=== PATIENT | female | born 1975 | race Caucasian/White ===

== ENCOUNTER 2019-07-08 12:30 | Inpatient (IN) ==
[2019-07-08] MEDS ORDERED: NS 1,000 ML IV ONE ×2 (12:59→16:41)
[2019-07-08] MEDS ORDERED: TYLENOL PO ONE (12:59)
[2019-07-08 13:01] LABS: BASO# 0.02 X1000 (0.0-0.2); BASO% 0.2 % (0.0-0.8); EOS# 0.02 X1000 (0.0-0.7); EOS% 0.2 % (0.0-10.0); IMM GRAN# 0.11 X1000 (0.0-0.04); IMM GRAN% 0.9 % (0.0-0.5); LYMPH# 1.84 X1000 (1.2-3.4); LYMPH% 14.4 % (20.5-51.1); MCHC 32.5 g/dL (33-37); MCV 95.2 FL (81-99); MONO# 0.83 X1000 (0.11-0.59); MONO% 6.5 % (1.7-9.3); MPV 9.8 FL (7.4-10.4); NEUT# 9.92 X1000 (1.4-6.5); NEUT% 77.8 % (42.2-75.2); PLT 320 X1000 (130-400); RDW 12.5 % (11.5-14.5); WBC 12.74 X1000 (4.8-10.8)
[2019-07-08] MEDS ORDERED: AMMONIA AROMATIC ONE (13:03)
--- NOTE | 2019-07-08 13:05 | PROVIDER DOCUMENTATION ---
HPI-Syncope/Dizziness - General Chief Complaint: Syncope Stated Complaint: syncope Time Seen by Provider: 07/08/19 12:43 Source: patient, family, EMS Allergies/Adverse Reactions: Patient Allergies Allergy/AdvReac Type Severity Reaction Status Date / Time levofloxacin [From Levaquin] Allergy Mild RASH Verified 07/08/19 14:53 meperidine HCl * Allergy Mild RASH Verified 07/08/19 14:53 [From Demerol] ketorolac tromethamine * Allergy ITCHING Verified 07/08/19 14:53 [From Toradol] metoclopramide [From Reglan] Allergy Unknown Verified 07/08/19 14:53 morphine Allergy ITCHING Verified 07/08/19 14:53 Home Medications: Home Medication List Medication Instructions Recorded Confirmed Last Taken Type Dicyclomine [Bentyl] 10 mg PO PRN PRN 12/13/13 07/08/19 07/08/19 History Fludrocortisone [Florinef] 0.1 mg PO DAILY 12/13/13 07/08/19 07/08/19 History Gabapentin [Neurontin] 600 mg PO RTQHS 12/13/13 07/08/19 07/08/19 History Tizanidine HCl 4 mg PO HS 12/13/13 07/08/19 07/08/19 History Alprazolam [Xanax] 1 mg PO Q6-8H PRN PRN 04/18/15 07/08/19 07/08/19 06:00 History Valacyclovir HCl [Valtrex] 1,000 mg PO DAILY 04/18/15 07/08/19 07/08/19 06:00 History Aripiprazole [Abilify] 10 mg PO DAILY 06/30/15 07/08/19 07/08/19 History Sumatriptan Succinate [Imitrex] 100 mg PO PRN PRN 09/17/16 07/08/19 07/08/19 History Amovig 70 mg INJ DIRECTED 07/08/19 Unknown History Cyanocobalamin (Vitamin B-12) 2,000 mcg PO DAILY 07/08/19 07/08/19 07/08/19 06:00 History [Vitamin B-12] Estrogens, Conjugated [Premarin] 0.625 mg PO DAILY 07/08/19 07/08/19 07/08/19 06:00 History Furosemide [Lasix] 20 mg PO DAILY 07/08/19 07/08/19 07/08/19 06:00 History Hydrocortisone [Cortef] 15 mg PO QPM 07/08/19 07/08/19 07/07/19 15:00 History Hydrocortisone [Cortef] 20 mg PO AC 07/08/19 07/08/19 07/07/19 06:00 History Levothyroxine [Synthroid] 137 microgm PO DAILY 07/08/19 07/08/19 07/08/19 06:00 History Metoclopramide [Reglan] 12.5 mg PO QPM 07/08/19 07/08/19 Unknown History Omeprazole 40 mg PO DAILY 07/08/19 07/08/19 07/08/19 History Potassium Chloride 10 meq PO DAILY 07/08/19 07/08/19 07/07/19 15:00 History Prasterone (Dhea) [Dhea] 50 mg PO DAILY 07/08/19 07/08/19 07/07/19 12:00 History Sitagliptin Phosphate [Januvia] 100 mg PO DAILY 07/08/19 07/08/19 07/08/19 06:00 History Topiramate [Trokendi Xr] 150 mg PO HS 07/08/19 07/08/19 07/07/19 19:00 History Trazodone [Desyrel] 200 mg PO QHS 07/08/19 07/08/19 07/07/19 19:00 History Vortioxetine Hydrobromide 20 mg PO DAILY 07/08/19 07/08/19 Unknown History [Trintellix] Vortioxetine Hydrobromide 20 mg PO DAILY 07/08/19 07/08/19 07/08/19 06:00 Histo ry [Trintellix] - History of Present Illness-Syncope/Dizzy Nature of Presenting Problem: Patient is a 44 yowf who presents via EMS following a syncopal episode 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 Family state pt was sitting in a chair when she passed out and did not fall out of the chair. Pt c/o "pain all over" and headache. She also c/o nausea. Denies any other symptoms. She is non-toxic in appearance. Review of Systems - Adult - REVIEW OF SYSTEMS - ADULT Constitutional: reports: no symptoms reported. denies: chills, fever Eyes: reports: no symptoms reported Ears, Nose, Mouth & Throat: reports: no symptoms reported Cardiovascular: reports: see HPI, syncope. denies: chest pain, edema Respiratory: reports: no symptoms reported. denies: shortness of breath Gastrointestinal: reports: see HPI, nausea. denies: abdominal pain, hematemesis, diarrhea, vomiting Genitourinary: reports: no symptoms reported Musculoskeletal: reports: see HPI ("pain all over") Integumentary: reports: no symptoms reported Neurological: reports: see HPI, headache/migraines, syncope. denies: ataxia, seizure Psychiatric: reports: no symptoms reported Endocrine: reports: no symptoms reported Hematologic/Lymphatic: reports: no symptoms reported Allergic/Immunologic: reports: no symptoms reported All Other Systems: Reviewed and Negative Past History - Adult - PAST MEDICAL HISTORY-ADULT Review of Records: reports: Old Records Reviewed, Nursing Assessment Review, Medications Reviewed, Social history reviewed & non-contributory. Major Childhood Illnesses: reports: denies history Cardiovascular: reports: heart valve problem (MVP) Respiratory: reports: COPD, sleep apnea Gastrointestinal: reports: GERD, other (gastroparesis) Obstetrical/Gynecological: reports: denies history Genitourinary: reports: denies history Musculoskeletal: reports: chronic pain, fibromyalgia, neck/back injury, other (restless leg syndrome) Neurological: reports: headaches/migraines, Seizures/Epilepsy Psychiatric: reports: anxiety, depression Endocrine/Immune: reports: adrenal insufficiency (Addisons), anemia, cancer (thyroid), Diabetes, thyroid disorder (hypo) 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 - PRIOR SURGERIES/PROCEDURES Surgical/Procedure History: reports: recent surgery (bladder sling placement), hysterectomy, BTL, indwelling device (bladder sling placement), tonsillectomy, hernia repair, back/neck (cervical fusion), other (thyroidectomy, L vocal cord, T&A, wisdom teeth removal) - IMMUNIZATION STATUS Childhood Immunizations: See Nurse Assessment Flu Vaccine: See Nurse Assessment - FAMILY HISTORY Family History: reviewed, not pertinent - SOCIAL HISTORY Smoking: cigarettes, less than 1 pack/day Physical Exam-General - PHYSICAL EXAM-ADULT Initial Vital Signs Reviewed: Yes - CONSTITUTIONAL General Appearance: alert, no apparent distress, lethargic. negative: slow to respond - EYES Eyes: PERRL/EOMI, pink conjunctivae. negative: anisocoria - HEAD, EARS, NOSE, MOUTH & THROAT HENMT: normocephalic/atraumatic, moist mucous membranes - NECK Neck: non-tender, full range of motion, supple, normal inspection. negative: C- spine tenderness - RESPIRATORY Respiratory: chest non-tender, lungs clear, normal breath sounds, no pleuratic chest pain, no respiratory distress, no accessory muscle use - CARDIOVASCULAR Cardiovascular: normal peripheral pulses, regular rate, rhythm, no edema, no gallop, no murmur - GASTROINTESTINAL (ABDOMEN) Abdominal Exam: normal bowel sounds, non tender, soft, no pulsatile mass - MUSCULOSKELETAL Back Exam: normal inspection Extremity: normal range of motion, non-tender, normal inspection - SKIN Integumentary: normal color, warm/dry. negative: cyanosis, diaphoresis, jaundic e, mottled, pallor - NEUROLOGIC Neurologic: grossly normal, no motor/sensory deficits - PSYCHIATRIC Psych/Mental Status: normal mood/affect, normal thought content, normal thought process, oriented x 3 Progress - PLAN OF CARE/RESULTS Progress/Plan/Lab Results: Vital Signs - 8 hr 07/08/19 12:38 07/08/19 12:42 07/08/19 16:23 Temperature 97.4 F L 97.8 F 97.7 F Pulse Rate 55 L 74 50 L Respiratory Rate 18 19 14 Blood Pressure 123/80 130/82 144/074 O2 Sat by Pulse Oximetry 97 98 96 Laboratory Results - last 24 hr 07/08/19 07/08/19 07/08/19 12:45 12:45 12:45 WBC 12.74 H RBC 4.20 Hgb 13.0 Hct 40.0 MCV 95.2 MCH 31.0 MCHC 32.5 L RDW Std Deviation 12.5 Plt Count 320 MPV 9.8 Immature Gran % (Auto) 0.9 H Neut % (Auto) 77.8 H Lymph % (Auto) 14.4 L Robeson % (Auto) 6.5 Eos % (Auto) 0.2 Baso % (Auto) 0.2 Immature Gran # (Auto) 0.11 H Neut # (Auto) 9.92 H Lymph # (Auto) 1.84 Robeson # (Auto) 0.83 H Eos # (Auto) 0.02 Baso # (Auto) 0.02 PT INR PTT (Actin FS) Sodium 142 Potassium 3.5 Chloride 106 Carbon Dioxide 26 Anion Gap 10 BUN 14 Creatinine 0.9 Estimated GFR/1.73 m2 > 60 BUN/Creatinine Ratio 16 Glucose 126 H Calculated Osmolality 285 Calcium 8.0 L Magnesium Total Bilirubin < 0.15 L AST 10 ALT 9 L Alkaline Phosphatase 83 Creatine Kinase 51 Troponin T Gei-D-Zevplqkpqai Pept 256 H Total Protein 6.1 L Albumin 3.8 Globulin 2.0 Albumin/Globulin Ratio 2.0 Cortisol Urine Source Urine Color Urine Clarity Urine pH Ur Specific Riva Urine Protein Urine Ketones Urine Blood Urine Nitrite Urine Bilirubin Urine Urobilinogen Urine WBC Urine Glucose Urine Opiates Screen Ur Oxycodone Screen Urine Methadone Screen U Propoxyphene Qual Ur Barbituates Screen Ur Tricyclics Screen Ur Phencyclidine Scrn Ur Amphetamines Screen U Methamphetamines Scrn U Benzodiazepines Scrn Urine Cocaine Screen U Cannabinoids Screen 07/08/19 07/08/19 07/08/19 12:45 12:45 12:45 WBC RBC Hgb Hct MCV MCH MCHC RDW Std Deviation Plt Count MPV Immature Gran % (Auto) Neut % (Auto) Lymph % (Auto) Robeson % (Auto) Eos % (Auto) Baso % (Auto) Immature Gran # (Auto) Neut # (Auto) Lymph # (Auto) Robeson # (Auto) Eos # (Auto) Baso # (Auto) PT 12.3 INR 0.87 PTT (Actin FS) 25.8 Sodium Potassium Chloride Carbon Dioxide Anion Gap BUN Creatinine Estimated GFR/1.73 m2 BUN/Creatinine Ratio Glucose Calculated Osmolality Calcium Magnesium Total Bilirubin AST ALT Alkaline Phosphatase Creatine Kinase Troponin T < 0.010 Jbw-P-Blgeswfkhka Pept Total Protein Albumin Globulin Albumin/Globulin Ratio Cortisol 6.0 Urine Source Urine Color Urine Clarity Urine pH Ur Specific Riva Urine Protein Urine Ketones Urine Blood Urine Nitrite Urine Bilirubin Urine Urobilinogen Urine WBC Urine Glucose Urine Opiates Screen Ur Oxycodone Screen Urine Methadone Screen U Propoxyphene Qual Ur Barbituates Screen Ur Tricyclics Screen Ur Phencyclidine Scrn Ur Amphetamines Screen U Methamphetamines Scrn U Benzodiazepines Scrn Urine Cocaine Screen U Cannabinoids Screen 07/08/19 07/08/19 07/08/19 12:45 13:15 13:15 WBC RBC Hgb Hct MCV MCH MCHC RDW Std Deviation Plt Count MPV Immature Gran % (Auto) Neut % (Auto) Lymph % (Auto) Robeson % (Auto) Eos % (Auto) Baso % (Auto) Immature Gran # (Auto) Neut # (Auto) Lymph # (Auto) Robeson # (Auto) Eos # (Auto) Baso # (Auto) PT INR PTT (Actin FS) Sodium Potassium Chloride Carbon Dioxide Anion Gap BUN Creatinine Estimated GFR/1.73 m2 BUN/Creatinine Ratio Glucose Calculated Osmolality Calcium Magnesium 1.9 Total Bilirubin AST ALT Alkaline Phosphatase Creatine Kinase Troponin T Tyd-T-Xprmxbugbhd Pept Total Protein Albumin Globulin Albumin/Globulin Ratio Cortisol Urine Source CATH Urine Color YELLOW Urine Clarity CLEAR Urine pH 7.0 Ur Specific Riva 1.005 Urine Protein NEGATIVE Urine Ketones TRACE Urine Blood NEGATIVE Urine Nitrite NEGATIVE Urine Bilirubin NEGATIVE Urine Urobilinogen NORMAL Urine WBC TRACE A Urine Glucose NEGATIVE Urine Opiates Screen NONE DETECTED Ur Oxycodone Screen NONE DETECTED Urine Methadone Screen NONE DETECTED U Propoxyphene Qual NONE DETECTED Ur Barbituates Screen NONE DETECTED Ur Tricyclics Screen PRESUMPTIVE POSITIVE A Ur Phencyclidine Scrn NONE DETECTED Ur Amphetamines Screen NONE DETECTED U Methamphetamines Scrn NONE DETECTED U Benzodiazepines Scrn NONE DETECTED Urine Cocaine Screen NONE DETECTED U Cannabinoids Screen NONE DETECTED Orders Category Date Time Status Cardiac Monitoring DIRECTED Care 07/08/19 12:38 Active Oxygen Therapy- ED Nursing DIRECTED Care 07/08/19 12:38 Active Saline Loc NOW Care 07/08/19 12:38 Active CHEST-2 VIEWS [RAD] Stat Exams 07/08/19 12:[address] HEAD W/O CONTRAST [CT] Stat Exams 07/08/19 12:59 Completed BLOOD CULTURE [BLDCUL] Stat Lab 07/08/19 15:45 Ordered CBC WITH ELECTRONIC DIFF [HEME] Stat Lab 07/08/19 12:45 Completed CK PROFILE [SP CHEM] Stat Lab 07/08/19 12:45 Completed COMPREHENSIVE METABOLIC PANEL [CHEM] Stat Lab 07/08/19 12:45 Completed CORTISOL Stat Lab 07/08/19 12:45 Completed MAGNESIUM [CHEM] Stat Lab 07/08/19 12:45 Completed PRO B-NATRIURETIC PEPTIDE Stat Lab 07/08/19 12:45 Completed PROTIME WITH INR [COAG] Stat Lab 07/08/19 12:45 Completed PTT [COAG] Stat Lab 07/08/19 12:45 Completed TROPONIN T Stat Lab 07/08/19 12:45 Completed UA [URINALYSIS DIPSTICK ONLY PL] [URINALYSIS] Stat Lab 07/08/19 13:15 Com[address]INE DRUG SCREEN [address] Stat Lab 07/08/19 13:15 Completed 0.9% Sodium Chloride Inj [Ns] 1,000 ml Med 07/08/19 12:59 Discontinued IV 999 mls/hr Acetaminophen [Tylenol] Med 07/08/19 12:59 Discontinued 650 mg PO NOW ONE Ammonia, Aromatic [Ammonia Aromatic] Med 07/08/19 13:03 Discontinued 1 each .ROUTE .STK-MED ONE Ammonia, Aromatic [Ammonia Aromatic] Med 07/08/19 13:19 Discontinued 1 each INH NOW ONE Calcium Gluconate 1 gm Med 07/08/19 15:40 Discontinued 0.9% Sodium Chloride Inj [Ns] 50 ml IV NOW CefTRIAXONE [Rocephin] 1 gm Med 07/08/19 15:39 Discontinued 0.9% Sodium Chloride Inj [Ns] 50 ml IV NOW CP/SOB/Palp >45 yrs of Age Stat Oth 07/08/19 12:38 Ordered EKG [EKG] Stat Ther 07/08/19 12:38 Draft Result Diagrams: 07/08/19 12:45 07/08/19 12:45 - REASSESSMENT Reassessment #1 Time Reassessed: 16:15 Status: other (Discussed case with Dr. Gallego who recommends treating pne with abx in the ED, as well as treating hypocalcemia with 1g of Calcium in the ED. Md also recommends discussing case with HPS for recommendations. Spoke with Dr. Alford who reviewed patient's results and does not see any outstanding results that would require admission, and to discuss with pt to see how she feels and assess her response to treatments given in the ED. Reassessed pt who is a&ox4 at this time. She states she is feeling better after IVF and Tylenol. She states she has had an Addisonian crisis before and that she does not feel that she is having a crisis. She states she wants to go home. Dr. Gallego is in agreement with discharge plan and recommends having pt return tomorrow for a recheck. Pt agrees to return tomorrow to be rechecked. Contacted daughter to pick pt up. Pt was given strict instructions to return to the ED for any new or worsening symptoms and to return tomorrow for recheck and she verbalized understanding.) Reassessment #2 Time Reassessed: 16:40 Status: other (Daughter arrived and pt now states she wishes to be admitted because she has no one available to stay with her tonight- family concerned pt will have further syncopal episodes and she will be alone. Discussed case with Dr. Alford who accepted admission.) - EKG 1 Time of EKG reading by physician:: 12:44 EKG Read and Signed by:: Harleen Gallego EKG Interpretation (*Must complete 3 of following elements*): Normal Rate: 60 Rhythm: SR QRS: normal ST Wave: normal - XRAY 1 XRAY Study: Chest ([facility] - [address] [facility], [address], [place] [address] [facility] - [address] [place] [address] Department of Imaging Patient: JESSICA SINGH Date: 07/08/19#: [id number] : 1975ADM Status: REG [facility]#: [id number] Age/Sex: 44/FRoom/Bed: Loc: P.ED Ordering Physician: Harleen Gallego MD Family Physician: None,PCP Reason for Procedure: syncope Signed CHEST-2 VIEWS - 07/08/2019 INDICATION: syncope COMPARISON: 12/13/2018 FINDINGS: There is cardiomegaly and pulmonary vascular congestion. Trace right middle lobe infiltrate is nonspecific. No pneumothorax or large pleural effusion. IMPRESSION: Cardiomegaly and pulmonary vascular congestion. Nonspecific trace right middle lobe infiltrate. Electronically signed by Mathew Lima 07/08/2019 2:38 PM 07/08/19 [id number] Interpreting Physician: Mathew Lima MD Dictated Date/Time: 07/08/19 1430 cc: Harleen Gallego MD; None,PCP) - CT/MRI 1 CT Study: Head ([facility] - [address], [address], [place] [address] [facility] - [address] , [place] [address] Department of Imaging Patient: JESSICA SINGH Date: 07/08/19MR#: [id number] : 1975ADM Status: REG [facility]#: [id number] Age/Sex: 44/FRoom/Bed: Loc: P.ED Ordering Physician: Mary Carpenter Family Physician: None,PCP Reason for Procedure: syncope Signed CT HEAD W/O CONTRAST - 07/08/2019 INDICATION: syncope COMPARISON: 04/08/2018 FINDINGS: The ventricles and sulci are normal in size and contour. No intracranial mass or hemorrhage. The skull is intact. The si nuses mastoids and middle ears are clear. IMPRESSION: Negative exam. This exam was performed using automated exposure control, adjustment of mA or kV according to patient size, and/or use of iterative reconstruction technique Electronically signed by Mathew Lima 07/08/2019 2:45 PM 07/08/19 1445 Interpreting Physician: Mathew Lima MD Dictated Date/Time: 07/08/19 1444 cc: Mary Carpenter; None,PCP) - CONSULTS/PCP/HOSPITALIST Notification #1 *Consult/PCP/Hospitalist*: Dr. Alford Time Discussed: 16:39 Consult Disposition: Admit (Requests that I write preliminary orders and he will see pt and write further orders.) Departure - Departure Date of Disposition Decision: 07/08/19 Time of Disposition Decision: 15:58 DIAGNOSIS: Generalized pain Pneumonia Qualifiers: Pneumonia type: due to unspecified organism Laterality: right Lung location: middle lobe of lung Qualified Code(s): J18.1 - Lobar pneumonia, unspecified organism Syncope Qualifiers: Syncope type: unspecified Qualified Code(s): R55 - Syncope and collapse Headache Qualifiers: Headache type: unspecified Headache chronicity pattern: unspecified pattern Intractability: not intractable Qualified Code(s): R51 - Headache Disposition: ADMITTED INPATIENT 09 Certified Medical Emergency: Emergent Condition: Stable Additional Freetext Instructions: ED Follow Up Instructions: Increase fluids/rest. You have been treated by a care provider in the Emergency Department. These instructions are being provided to you so you can have an understanding of how to care for yourself upon discharge. Upon discharge from the Emergency Department, you are responsible for making arrangements for follow-up care by a physician of your choice. Take all prescribed medications as directed. Return to the Emergency Department immediately for any new or worsening sy mptoms. You may call the Physician Referral phone number at [phone] to obtain a list of Physicians who are taking new patients. Referrals and Follow-Ups: None,PCP [Primary Care Provider] - Work Excuses: Return to School/Parent Work Discharge Education: General Headache Without Cause, Syncope, [id number], Community-Acquired Pneumonia, Adult, [id number] - Critical Care Note This patient required my direct & personal management of CC.: No Attestation - Physician/ JESSICA Attestation Patient care was provided by Advanced Practice Provider:: Yes Advanced Practice Provider:: Mary Carpenter Advanced Practice Provider documentation review:: The Mid-level provider documentation, treatment plan and medical decision making was reviewed by the physician who agrees with all treatment and medical decision making by the MLP. The physician spent face to face time with patient:: No Advanced Practice Provider documentation review:: Supervising physician onsite and consulted in the evaluation and care of this patient. The physician did not have a face to face encounter with the patient.
[2019-07-08 13:18] LABS: AGAP 10; ALBUMIN 3.8 g/dL (3.5-5.0); ALKALINE PHOSPHATASE 83 U/L (32-104); BUN 14 mg/dL (8-22); CHLORIDE 106 mmol/L (98-107); CK PROFILE 51 U/L (24-173); COSMO 285; CREATININE 0.9 mg/dL (0.5-0.9); ESTIMATED GFR > 60; GLUCOSE 126 mg/dL (70-104); GOT 10 U/L (10-30); GPT 9 U/L (10-36); POTASSIUM 3.5 mmol/L (3.5-5.1); SODIUM 142 mmol/L (136-145); TCO2 26 mmol/L (25-35); TOTAL BILIRUBIN < 0.15 mg/dL (0.20-1.00); TOTAL PROTEIN 6.1 g/dL (6.3-8.3)
[2019-07-08] MEDS ORDERED: AMMONIA AROMATIC INH ONE (13:19)
[2019-07-08 13:21] LABS: INR 0.87; PROTIME 12.3 Seconds (11.0-16.0)
[2019-07-08 13:22] LABS: PTT 25.8 Seconds (22.3-41.8)
[2019-07-08 13:28] LABS: URINE SOURCE CATH
[2019-07-08 13:32] LABS: BILIRUBIN URINE NEGATIVE (NEGATIVE); BLOOD URINE NEGATIVE (NEGATIVE); CLARITY CLEAR (CLEAR); COLOR YELLOW; GLUCOSE URINE NEGATIVE (NEGATIVE); KETONE URINE TRACE mg/dL (NEGATIVE); LEUKOCYTES URINE TRACE (NEGATIVE); NITRITE URINE NEGATIVE (NEGATIVE); PROTEIN URINE NEGATIVE (NEGATIVE); SP GRAVITY URINE 1.005; UROBILINOGEN URINE NORMAL
--- NOTE | 2019-07-08 13:52 | EKG Report ---
Test Performed on : 07/08/2019 12:40:57 PM Test Reason : syncope Blood Pressure : / mmHG Vent. Rate : 060 BPM Atrial Rate : 060 BPM P-R Int : 138 ms QRS Dur : 084 ms QT Int : 444 ms P-R-T Axes : 040 -13 -02 degrees QTc Int : 444 ms Normal sinus rhythm. Minimal voltage criteria for LVH, may be normal variant Septal infarct (cited on or before 30-JUN-2018) Abnormal ECG When compared with ECG of 13-DEC-2018 12:16, No significant change was found Unconfirmed Result
[2019-07-08 13:54] LABS: UR AMPHETAMINES QUAL NONE DETECTED (NONE DETECT); UR BARBITUATES QUAL NONE DETECTED (NONE DETECT); UR BENZODIAZEPIN QUAL NONE DETECTED (NONE DETECT); UR CANNABINOIDS QUAL NONE DETECTED (NONE DETECT); UR COCAINE QUAL NONE DETECTED (NONE DETECT); UR METHADONE QUAL NONE DETECTED (NONE DETECT); UR METHAMPHETAMINE QUAL NONE DETECTED (NONE DETECT); UR OPIATES QUAL NONE DETECTED (NONE DETECT); UR OXYCODONE QUAL NONE DETECTED (NONE DETECT); UR PCP QUAL NONE DETECTED (NONE DETECT); UR PROPOXYPHENE QUAL NONE DETECTED (NONE DETECT); UR TCA QUAL PRESUMPTIVE POSITIVE (NONE DETECT)
--- NOTE | 2019-07-08 14:40 | Diag Imaging Result Doc PS360 ---
CHEST-2 VIEWS - 07/08/2019 INDICATION: syncope COMPARISON: 12/13/2018 FINDINGS: There is cardiomegaly and pulmonary vascular congestion. Trace right middle lobe infiltrate is nonspecific. No pneumothorax or large pleural effusion. IMPRESSION: Cardiomegaly and pulmonary vascular congestion. Nonspecific trace right middle lobe infiltrate. Electronically signed by Mathew Lima 07/08/2019 2:38 PM
--- NOTE | 2019-07-08 14:47 | Diag Imaging Result Doc PS360 ---
CT HEAD W/O CONTRAST - 07/08/2019 INDICATION: syncope COMPARISON: 04/08/2018 FINDINGS: The ventricles and sulci are normal in size and contour. No intracranial mass or hemorrhage. The skull is intact. The sinuses mastoids and middle ears are clear. IMPRESSION: Negative exam. This exam was performed using automated exposure control, adjustment of mA or kV according to patient size, and/or use of iterative reconstruction technique Electronically signed by Mathew Lima 07/08/2019 2:45 PM
[2019-07-08] MEDS ORDERED: ROCEPHIN 1 GM in NS 50 ML IV ONE (15:39)
[2019-07-08] MEDS ORDERED: CALCIUM GLUCONATE 1 GM in NS 50 ML IV ONE (15:40)
[2019-07-08] MEDS ORDERED: ZOFRAN IV PRN ×2 (16:41→17:51)
[2019-07-08] MEDS ORDERED: TYLENOL PO PRN ×2 (16:41→17:51)
[2019-07-08] MEDS ORDERED: DUONEB (A & A) INH PRN (17:51)
[2019-07-08] MEDS ORDERED: XANAX PO PRN (17:51)
[2019-07-08] MEDS: DUONEB (A & A) INH SCH ×2 (19:21→22:53)
[2019-07-08] MEDS: NS 1,000 ML IV SCH (19:28)
[2019-07-08] MEDS ORDERED: DUONEB (A & A) INH SCH (19:30)
[2019-07-08] MEDS: DOXYCYCLINE PO SCH ×2 (19:37→21:26)
--- NOTE | 2019-07-08 20:58 | HISTORY AND PHYSICAL ---
PRIMARY CARE PROVIDER: Dr. Kael Lorenzo. CHIEF COMPLAINT: Overheated, passed out. HISTORY OF PRESENT ILLNESS: Ms. Toro is a 44-year-old, female, who carries a past medical history of [place]ax's disease, anxiety, depression, GERD, gastroparesis, diabetes mellitus type 2, osteoporosis, migraines, restless leg syndrome, mitral valve prolapse, and tricuspid valve regurgitation. Reported to the ED after she had been outside having a yard sale. She was sitting in a chair in front of a fan, and the last thing she remembers is waking up here. Per family report, she slumped over in the chair. She complained of pain all over and a headache, as well as nausea. She reported a nonproductive cough now for 2 weeks with some associated shortness of breath and some occasional wheezes. She reported an incident like this that happened a month ago as well. However, she did not seek treatment at that time. She denies any chest pain, vomiting, or diarrhea. She was initially set up to be discharged. However, she lives with her mother and her mother was not going to be available to stay with her overnight, so she decided to stay to be monitored overnight. She was found to have a faint right middle lobe pneumonia. Upon examination, she does have scattered rhonchi throughout all lung callejas. It is actually worse on the left than the right. So, she will be admitted in observation status overnight. We will continue with IV antibiotics and IV fluids. PAST MEDICAL HISTORY: As per HPI. PAST SURGICAL HISTORY: 1. Bilateral tubal ligation. 2. Hysterectomy. 3. Neck surgery. 4. Left rotator cuff surgery. 5. Thyroidectomy. 6. Deviated septum surgery. FAMILY HISTORY: Noncontributory. SOCIAL HISTORY: She lives with her mother. She is an ex-smoker. No alcohol or illicit drug use. ALLERGIES: Levaquin, Demerol, Toradol, Reglan, and morphine. HOME MEDICATIONS: Per EMR. PHYSICAL EXAMINATION: VITAL SIGNS: Temperature is 98.6 degrees, heart rate 67, respirations 12, blood pressure is 133/71, O2 is 97% room air. GENERAL: Ms. Toro is a 44-year-old, female, lying on the stretcher in no acute distress. HEENT: Atraumatic, normocephalic. PERRL. NECK: Supple. Trachea midline. CARDIOVASCULAR: S1, S2 appreciated. No murmurs, gallops, rubs noted. RESPIRATORY: Lung sounds, scattered rhonchi throughout all lung callejas; however, left is actually greater than the right. GASTROINTESTINAL: Soft, nontender, nondistended. Positive bowel sounds in 4 quadrants. EXTREMITIES: Lower extremities are negative for edema. Bilateral pedal pulses are palpable. NEUROLOGIC: No focal deficits noted. DIAGNOSTIC DATA: Head CT was a negative exam. Chest x-ray, cardiomegaly and pulmonary vascular congestion, nonspecific trace right middle lobe infiltrate. EKG, normal sinus rhythm at 60 beats per minute. LABORATORY DATA: White count 12, hemoglobin and hematocrit 13 and 40, platelet count is 320,000. Sodium 142, potassium 3.5, BUN 14, creatinine 0.9, blood glucose 126, calcium 8.0, magnesium 1.9. ProBNP 256. Toxicology screen positive for tricyclics. ASSESSMENT AND PLAN: 1. Right middle lobe pneumonia. She does have a faint infiltrate on her chest x-ray. She has had a productive cough with some associated shortness of breath and some wheezing. We will admit her, place her on IV Rocephin and p.o. doxycycline, scheduled DuoNeb and p.r.n. for any wheezing, aggressive pulmonary toilet. 2. Probable heat exhaustion. Patient states she was outside at a yard sale, and became too hot and passed out in her chair. We will continue IV fluids overnight, monitor electrolytes in the a.m. Head CT was negative. 3. Climax's disease. 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 4. Anxiety and depression. Aware. 5. Gastroesophageal reflux disease. 6. Gastroparesis. Continue Reglan. 7. Type 2 diabetes. We will continue sliding scale with patterned blood sugars. 8. Migraines. 9. Restless leg syndrome. 10. Mitral valve prolapse and tricuspid valve regurgitation. Aware. 11. Further recommendation to follow physician evaluation, laboratory data, and diagnostic data. Dictated by MIKE Henry for Bam Alford MD cc: MD Kael Field MD
[2019-07-08] MEDS ORDERED: PATIENT'S OWN MED PO SCH (21:00)
[2019-07-08] MEDS ORDERED: ZANAFLEX PO SCH (21:00)
[2019-07-08] MEDS ORDERED: NEURONTIN PO SCH (21:00)
[2019-07-08] MEDS ORDERED: DESYREL PO SCH (21:00)
[2019-07-08] MEDS ORDERED: TOPROL XL PO SCH (21:00)
[2019-07-08] MEDS ORDERED: CORTEF PO SCH (21:00)
[2019-07-08] MEDS: HUMALOG SUBQ SCH (21:28)
--- NOTE | 2019-07-08 21:37 | HISTORY AND PHYSICAL ---
ADDENDUM: I saw the patient [id number] and agree with the assessment plan of nurse practitioner, Ana. This is a 44-year-old female who has extensive medical history including [place] disease, hypothyroidism, and diabetes. She had a syncopal episode, after which she presented to the emergency room, where she was found to have leukocytosis along with a small right middle lobe infiltrate. She has been having cough and chest congestion with yellowish phlegm for the past 2 weeks. We are going to admit the patient to the medical floor and initiate her on broad-spectrum antibiotics including ceftriaxone and doxycycline. We will provide her supportive care including IV fluids. Further recommendations will be given as per hospital course. cc: Bam Alford MD
[2019-07-09] MEDS: DUONEB (A & A) INH SCH ×2 (03:22→07:53)
[2019-07-09] MEDS: HUMALOG SUBQ SCH (06:18)
[2019-07-09] MEDS ORDERED: HUMALOG (PARKWAY) SUBQ SCH (06:40)
[2019-07-09] MEDS ORDERED: SYNTHROID PO SCH ×3 (07:00→09:00)
[2019-07-09] MEDS ORDERED: PRILOSEC PO SCH (07:00)
[2019-07-09] MEDS ORDERED: CORTEF PO SCH (07:00)
[2019-07-09 07:19] LABS: BASO# 0.02 X1000 (0.0-0.2); BASO% 0.2 % (0.0-0.8); EOS# 0.03 X1000 (0.0-0.7); EOS% 0.3 % (0.0-10.0); HEMOGLOBIN 12.1 g/dL (12.0-16.0); IMM GRAN# 0.07 X1000 (0.0-0.04); IMM GRAN% 0.7 % (0.0-0.5); LYMPH# 1.81 X1000 (1.2-3.4); LYMPH% 19.1 % (20.5-51.1); MCH 30.1 PG (27-31); MONO# 0.48 X1000 (0.11-0.59); MONO% 5.1 % (1.7-9.3); MPV 9.8 FL (7.4-10.4); NEUT# 7.06 X1000 (1.4-6.5); NEUT% 74.6 % (42.2-75.2); PLT 304 X1000 (130-400); RBC 4.02 XMIL (4.2-5.4); RDW 12.9 % (11.5-14.5); WBC 9.47 X1000 (4.8-10.8)
--- NOTE | 2019-07-09 07:28 | Diag Imaging Result Doc PS360 ---
CHEST-PORTABLE - 07/09/2019 INDICATION: PNA fu COMPARISON: 07/08/2019 FINDINGS: Lung volumes remain severely low. There has been improvement in the trace nonspecific medial right middle lobe infiltrate. No other infiltrates. Heart size is normal. IMPRESSION: Improvement from prior. Small right middle lobe infiltrate suggesting pneumonia. Persistent low lung volumes. Electronically signed by Mathew Lima 07/09/2019 7:26 AM
[2019-07-09 07:40] LABS: AGAP 10; ALBUMIN 3.3 g/dL (3.5-5.0); ALKALINE PHOSPHATASE 68 U/L (32-104); BUN 11 mg/dL (8-22); CALCIUM 7.5 mg/dL (8.8-10.2); CHLORIDE 110 mmol/L (98-107); COSMO 285; CREATININE 0.9 mg/dL (0.5-0.9); ESTIMATED GFR > 60; GLUCOSE 145 mg/dL (70-104); GOT 9 U/L (10-30); GPT 9 U/L (10-36); POTASSIUM 3.5 mmol/L (3.5-5.1); SODIUM 142 mmol/L (136-145); TCO2 22 mmol/L (25-35); TOTAL BILIRUBIN < 0.15 mg/dL (0.20-1.00); TOTAL PROTEIN 5.8 g/dL (6.3-8.3)
[2019-07-09 08:16] VITALS: BP 122/77
[2019-07-09] MEDS ORDERED: FLORINEF PO SCH (09:00)
[2019-07-09] MEDS ORDERED: PATIENT'S OWN MED PO SCH (09:00)
[2019-07-09] MEDS ORDERED: VALTREX PO SCH (09:00)
[2019-07-09] MEDS ORDERED: PREMARIN PO SCH (09:00)
[2019-07-09] MEDS ORDERED: JANUVIA PO SCH (09:00)
[2019-07-09] MEDS ORDERED: KLOR-CON PO SCH (09:00)
[2019-07-09] MEDS ORDERED: LASIX PO SCH (09:00)
[2019-07-09] MEDS ORDERED: TRINTELLIX PO SCH (09:00)
[2019-07-09] MEDS ORDERED: ABILIFY PO SCH (09:00)
[2019-07-09] MEDS: DOXYCYCLINE PO SCH (09:36)
[2019-07-09] MEDS: NS 1,000 ML IV SCH (09:39)
[2019-07-09] MEDS ORDERED: ROCEPHIN 1 GM in NS 50 ML IV SCH (17:15)
--- NOTE | 2019-07-09 20:52 | DISCHARGE SUMMARY ---
ADMISSION DATE: 07/08/2019 DISCHARGE DATE: 07/09/2019 DISCHARGE DIAGNOSES: 1. Right middle lobe pneumonia. 2. Syncope. 3. Diabetes mellitus. 4. Hypothyroidism. HOSPITAL COURSE: Ms. Toro is a 44-year-old female who has extensive past medical history including [place] Disease, type 2 diabetes mellitus, hypothyroidism, and anxiety/depression. She reported to the ED after she had an episode of syncope. This was brief, and she did not sustain any injuries. She reported another syncope event about 3 months ago. She was noted to have right middle lobe faint pneumonia for which she was admitted to the hospital for further care. The patient was treated with IV levofloxacin and was given IV fluids after which her condition improved. I am doubtful that right middle lobe pneumonia is responsible for her syncope, but I believe either could be dehydration, or it could be polypharmacy causing that as she is taking too many medications that cause her to have altered mental status. Her labs did not show any dehydration, and yesterday, her BUN and creatinine were 14 and 0.9, respectively. Her overall condition has improved, however, and therefore, she is going to be discharged home today. DISCHARGE MEDICATIONS: 1. Doxycycline 100 mg orally twice daily for 10 days. 2. Alprazolam1 mg orally every 6 hours as needed for anxiety. 3. Abilify 10 mg orally once daily. 4. Premarin 6.25 mg orally once daily. 5. Florinef 0.1 mg orally once daily. 6. Lasix 20 mg orally once daily in the morning. 7. Gabapentin 600 mg orally once daily at bedtime. 8. Hydrocortisone 20 mg orally 3 times a day with meals. 9. Hydrocortisone 15 mg orally once daily at bedtime. 10. Metoclopramide 10 mg 30 minutes prior to each meal. 11. Omeprazole 40 mg orally once daily in the morning. 12. Potassium chloride 10 mEq orally once daily. 13. DHEA 50 mg orally once daily. 14. Januvia 100 mg orally once daily. 15. Tizanidine 4 mg orally once daily at bedtime. 16. Topamax ER 150 mg orally once daily at bedtime. 17. Trazodone 200 mg orally once daily at bedtime. 18. Valacyclovir 1000 mg orally once daily. 19. Trintellix 20 mg orally once daily. 20. Aimovig 70 mg injection as directed for migraine headaches. 21. Vitamin B12, 2000 mcg orally once daily. 22. Bentyl 10 mg orally as needed for abdominal cramps. 23. Percocet 7.5 mg orally twice daily. 24. Sumatriptan 100 mg orally as needed for migraine headaches. FOLLOW-UP: Patient is advised to follow up with PCP in one week. CONDITION: Stable. DISPOSITION: Home. TIME SPENT: A total of more than 35 minutes were spent during the discharge process. cc: Bam Alford MD [id number]
== END 2019-07-09 11:02 | disposition home or self-care (01) | DRG 194 ==
LOC: P.ED 12:30 → P.MEDSURG 17:09
PROVIDERS: ATTEND Internal Medicine